=== PATIENT | female | born 1965 | race Caucasian/White ===

== ENCOUNTER 2017-07-03 11:43 | Day surgery (SDC) | payer OTHER ==
[~2017-07-03] VITALS: Ht 165.1 cm; Wt 83.9 kg
[~2017-07-03 11:43] MED LIST: HYDROXYZINE PAM25 MG PO; LIPITOR10 MG PO; LISINOPRIL-HCT1 EAC2 PO; LISINOPRIL10 MG PO
[2017-07-03] MEDS ORDERED: KEFLEX500 MG PO (12:35)
--- NOTE | 2017-07-03 14:38 | NUR ---
07/03/17 1438 PatriceJames schmidt PT DENIES ANY PAIN OR OTHER PROBLEMS.
--- NOTE | 2017-07-15 13:40 | OR ---
[facility] [facility] [address] [place], [place] [address] Signed DATE OF PROCEDURE: 07/03/17 PREOPERATIVE DIAGNOSIS History of sigmoid colectomy for stage IV colon cancer including hepatic resection (Torsten Dang, [place], [place]) in 2004. POSTOPERATIVE DIAGNOSIS: Normal colon to cecum. PROCEDURE: Total colonoscopy to cecum. SURGEON: Kathy Crowder MD. ANESTHESIA: Intravenous sedation Fentanyl 100 mcg, Versed 7 mg. INDICATION This 51-year-old white woman is well known to me from the past having undergone extensive sigmoid resection for sigmoid colon cancer. She was notable to have metastatic disease to the liver as well as a very large 4 cm periaortic lymph node. Wide resection was accomplished without problem and hepatic resection undertaken in [place], [place] at [facility] by Dr. Diego Dang. She has had no evidence of recurrence since that time. She did undergo chemotherapy following all of that. She is admitted at this time to undergo surveillance colonoscopy. Her last colonoscopy was in 2012. She understands the risks of bleeding, infection, and perforation related to colonoscopy and wished to proceed. FINDINGS The prep was excellent. Complete colonoscopy was undertaken to the cecum. Good visualization of the ileocecal valve and appendiceal orifice were noted. The anastomosis was widely patent. There is no sign of polyps, diverticular formation, colitis, cancer, or anastomotic stricture. DESCRIPTION OF PROCEDURE The patient was brought to the endoscopy suite and placed in lateral decubitus position. Given intravenous sedation to the point of slurred speech and nystagmus. Digital rectal examination was normal. An Olympus video colonoscope was passed in the rectum and manipulated throughout the colon. The coloproctostomy was easily negotiated showing no evidence of anastomotic stricture or other problem. A side-to-end coloproctostomy was noted. The scope was advanced ultimately to the cecum where the ileocecal valve appeared normal. The cecum was normal as well. The scope was withdrawn from that point and examination throughout showed no sign of abnormality at all. Retro flexed view in the rectum was normal as Electronically Signed By: KATHY CROWDER MD 07/15/17 1340 PATIENT NAME: KRYSTAL MOLINA OPERATIVE REPORT DATE OF : 63 PHYSICIAN: KATHY CROWDER MD REPORT #: [id number] REPORT IS CONFIDENTIAL AND NOT TO BE RELEASED WITHOUT AUTHORIZATION [facility] [address] [place] [address] Signed well. Absence of the sigmoid and portion of left colon was noted. The scope was removed and the patient was taken to recovery room in good condition. CONCLUDING DIAGNOSIS No evidence of recurrent neoplasm or polyps of colon. PLAN Recommend repeat colonoscopy in 3 years, sooner if clinically indicated. She will return to the ongoing care of Dr. Hector in [place], [place]. MD SARAH Ricci/Syl /[id number] cc: Valerie Hector MD [address] [facility], [place] [address] Dr. Diego Dang [place], [place] Electronically Signed By: KATHY CROWDER MD 07/15/17 1340 PATIENT NAME: KRYSTAL MOLINA OPERATIVE REPORT DATE OF : 63 PHYSICIAN: KATHY CROWDER MD REPORT #: [id number] REPORT IS CONFIDENTIAL AND NOT TO BE RELEASED WITHOUT AUTHORIZATION
== END 2017-07-03 15:10 | disposition home or self-care (01) ==
LOC: OPS 11:43 → DS 13:00 → OPS 13:00
PROVIDERS: Surgery
PROC: 0DJD8ZZ Inspection of Lower Intestinal Tract, Via Natural or Artificial Opening Endoscopic (ICD-10-PCS; principal; 2017-07-03 13:00)
DX: Z12.11 Encounter for screening for malignant neoplasm of colon (principal); E78.5 Hyperlipidemia, unspecified; F41.9 Anxiety disorder, unspecified; I10 Essential (primary) hypertension; Z90.49 Acquired absence of other specified parts of digestive tract; Z90.710 Acquired absence of both cervix and uterus; Z88.5 Allergy status to narcotic agent; Z98.890 Other specified postprocedural states
CPT/HCPCS: 99152; 99153; J2250; J3010

== ENCOUNTER 2025-06-02 06:20 | Day surgery (SDC) | payer OTHER ==
[~2025-06-02] VITALS: Ht 165.1 cm; Wt 87.3 kg
--- NOTE | ~2025-06-02 | OR ---
[facility] [address] [place], [place] [address] Draft DATE OF OPERATION: 06/02/2025 SURGEON: Kathy Crowder MD PREOPERATIVE DIAGNOSES: 1. History of stage IV colon cancer, status post sigmoid resection and subsequent hepatic resection 2004. 2. Adenomatous polyp 2021. POSTOPERATIVE DIAGNOSES: Partially pedunculated 1 cm polyp at 28 cm; small polyp at hepatic flexure. PROCEDURES: Total colonoscopy to cecum with cold morcellation polypectomy x1 and hot snare polypectomy x1. ANESTHESIA: Intravenous sedation, fentanyl 150 mcg, and Versed 9 mg. INDICATION: This 59-year-old white woman is now 20 years out from sigmoid resection with extensive lymphadenectomy, chemotherapy and subsequent hepatic resection for large metastatic lesion (Dr. Diego Dang, [facility]). She continues to have colonic surveillance. She last underwent colonoscopy in 2001, at which point she had a small adenoma resected. She continues to be free of symptoms, having no bleeding, diarrhea or constipation and no known evidence of recurrent colon cancer. She is admitted for surveillance colonoscopy at this time, understands the risk of bleeding, infection, and perforation. FINDINGS: The prep was good. Complete colonoscopy was undertaken of the cecum with full intubation of the cecum. There was a small adenomatous polyp at the hepatic flexure, which was resected with cold morcellation technique and a somewhat pedunculated polyp at 28 cm above the level of her colonic anastomosis, which was resected with hot snare technique. The remaining colon was otherwise normal. The anastomosis was widely patent. DESCRIPTION OF PROCEDURE: The patient was brought to the endoscopy suite and placed in lateral decubitus position, given intravenous sedation to the point of slurred speech and nystagmus with full PATIENT NAME: KRYSTAL MOLINA OPERATIVE REPORT DATE OF : 63 REPORT #: [id number] PHYSICIAN: KATHY CROWDER MD PCP: UNASSIGNED DOCTOR REPORT IS CONFIDENTIAL AND NOT TO BE RELEASED WITHOUT AUTHORIZATION [facility] [address] [place], [place] [address] Draft cardiopulmonary monitoring. Digital rectal examination was normal. An Olympus video colonoscope was passed in the rectum and manipulated throughout the colon ultimately intubating the cecum itself. The ileocecal valve and appendiceal orifice were normal. The prep was quite good. The scope was withdrawn. Examination undertaken showed a small adenomatous appearing polyp of the hepatic flexure, which was excised with cold morcellation technique. Further withdrawal identified a somewhat larger at least 1 cm polyp proximal to the coloproctostomy at 28 cm. This was excised with hot snare technique completely. It was placed in a Barth net, extracted. Scope was reintroduced. Examination of the polypectomy site showed complete resection and no sign of complication. Further withdrawal showed the anastomosis to be widely patent. The rectum was normal. Retroflexed view was normal. Scope was removed. The patient was taken to recovery room in good condition. CONCLUDING DIAGNOSIS: Polyps x2. PLAN: Recommend repeat colonoscopy in 2-3 years given the increasing frequency of polyp formation in her case. She will return otherwise to the ongoing care of NICOLAS Abad in [place], [place]. MD SARAH Ricci/ESHA /[id number] cc: NICOLAS Abad [place] Dr. Thomas Biehl [place], [place] Copies: PATIENT NAME: SYED MOLINALOUISE IGNACIA OPERATIVE REPORT DATE OF : 63 REPORT #: [id number] PHYSICIAN: KATHY CROWDER MD PCP: UNASSIGNED DOCTOR REPORT IS CONFIDENTIAL AND NOT TO BE RELEASED WITHOUT AUTHORIZATION [address] [address] Draft ~ PATIENT NAME: KRYSTAL MOLINA OPERATIVE REPORT DATE OF : 63 REPORT #: [id number] PHYSICIAN: KATHY CROWDER MD PCP: UNASSIGNED DOCTOR REPORT IS CONFIDENTIAL AND NOT TO BE RELEASED WITHOUT AUTHORIZATION
[~2025-06-02 06:20] MED LIST changes: +KEFLEX500 MG PO; +MIDAZOLAM HCL 5 MG/5 ML VIAL IV PRN; +fentaNYL citrate 100 MCG/2 ML VIAL IV PRN
[2025-06-02 06:50] VITALS: BP 123/82
[2025-06-02] MEDS ORDERED: LIPITOR20 MG PO (06:53)
[2025-06-02] MEDS ORDERED: fentaNYL citrate 100 MCG/2 ML VIAL ONE (06:57)
[2025-06-02] MEDS ORDERED: MIDAZOLAM HCL 5 MG/5 ML VIAL ONE (06:57)
[2025-06-02] MEDS ORDERED: LACTATED RINGER'S 1,000 ML IV SCH (07:00)
[2025-06-02] MEDS ORDERED: IBLOOD GLUCOSE TEST STRIP 1 EA TEST VI PRN (07:00)
[2025-06-02] MEDS ORDERED: LIDOCAINE HCL 1% 5 ML SDV INJ ONE (07:00)
--- NOTE | 2025-06-02 07:37 | NUR ---
PT NOT AVAILABLE FOR VISIT. PROVIDED PRAYER.
--- NOTE | 2025-06-02 08:28 | NUR ---
06/02/25 0828 Marysol,Adriana 0885 PT ARRIVED TO PACU AND RESP EVEN AND UNLABORED. PT TALKING TO RN AND DENIES CONCERNS. PT ENCOURAGED TO PASS GAS NEEDED.
[2025-06-02 09:10] VITALS: BP 116/77
--- NOTE | 2025-06-04 15:34 | PATH ---
[facility] [address] [facility] [place], [place] [address] Signed SPECIMEN(S): A HEPATIC FLEXURE POLYP SPECIMEN(S): B COLON POLYP, 28 CM SPECIMEN SOURCE: A. HEPATIC FLEXURE POLYP B. COLON POLYP, 28 CM CLINICAL HISTORY: Pre--2004 history of colon cancer with liver "illegible word ", 2021 tubular adenoma. Post-polyps x 2 A/B) polyp FINAL PATHOLOGIC DIAGNOSIS: A. Hepatic flexure polyp: - Tubular adenoma (one fragment). B. Colon polyp at 28 cm: - Tubular adenoma (one fragment). JVR:clv MICROSCOPIC EXAMINATION: Histologic sections of all submitted blocks are examined by light microscopy. These findings, together with the gross examination, support the pathologic diagnosis. GROSS DESCRIPTION: A. The specimen, labeled and designated "Snively, hepatic flexure polyp," is received in formalin and consists of two ballesteros soft tissue fragments, ranging from 0.2-0.5 cm. Entirely submitted in (A1). B. The specimen, labeled and designated "Snively, colon polyp, 28 cm," is received in formalin and consists of one ballesteros soft tissue fragment, 0.7 cm. Entirely submitted in (B1). AB (under the direct supervision of a pathologist) The Gross Description was prepared using a voice recognition system. The report was reviewed for accuracy; however, sound-alike word errors, addition and/or deletions may occur. If there is any question about this report, please contact Client Services. PERFORMING LABORATORY: Technical component was performed by [facility], [address] [place] [id number] (CLIA# [id number]). Professional interpretation was performed by [facility] - [facility], [address] PATIENT NAME: KRYSTAL MOLINA PATHOLOGY DATE OF : 63 REPORT #: [id number] PHYSICIAN: [facility] PCP: UNASSIGNED DOCTOR REPORT IS CONFIDENTIAL AND NOT TO BE RELEASED WITHOUT AUTHORIZATION [facility] [address] [place], [place] [address], [place] [address] (CLIA#: [id number]). Diagnostician: Maury Mederos MD Pathologist Electronically Signed 06/04/2025 Copies: ~ PATIENT NAME: KRYSTAL MOLINA PATHOLOGY DATE OF : 63 REPORT #: [id number] PHYSICIAN: [facility] PCP: UNASSIGNED DOCTOR REPORT IS CONFIDENTIAL AND NOT TO BE RELEASED WITHOUT AUTHORIZATION
== END 2025-06-02 09:25 | disposition home or self-care (01) ==
LOC: DS 06:20
PROVIDERS: ATTEND Surgery
PROC: 0DBN8ZZ Excision of Sigmoid Colon, Via Natural or Artificial Opening Endoscopic (ICD-10-PCS; 2025-06-02)
PROC: 0DBL8ZX Excision of Transverse Colon, Via Natural or Artificial Opening Endoscopic, Diagnostic (ICD-10-PCS; principal; 2025-06-02 07:30)
DX: Z12.11 Encounter for screening for malignant neoplasm of colon (principal); D12.3 Benign neoplasm of transverse colon; D12.5 Benign neoplasm of sigmoid colon; I10 Essential (primary) hypertension; E78.5 Hyperlipidemia, unspecified; Z85.038 Personal history of other malignant neoplasm of large intestine; Z92.21 Personal history of antineoplastic chemotherapy; Z98.0 Intestinal bypass and anastomosis status; Z79.899 Other long term (current) drug therapy; Z88.5 Allergy status to narcotic agent
CPT/HCPCS: 99153; G0500; J2250; J3010; J7121